=== PATIENT | female | born 1970 | race Caucasian/White ===

== ENCOUNTER → 2021-01-07 | Outpatient (CLI) | payer OTHER ==
[~2021-01-07] MED LIST: AIMOVIG AU140 MG/1 M SQ; ALDACTONE100 MG PO; B 12 PO; BACLOFEN20 MG PO; BYSTOLIC5 MG PO; COLCRYS0.6 MG PO; DILAUDID PUMP EPI; DOCUSATE SODIU100 M1 PO; ELIQUIS 2.5 MG2.5 MG PO; ESTRACE1 MG PO; FLUZONE QU60 MCG/015 IM; HYDROCODON-ACE1 EAC4 PO; HYDROMORPH IV; LEVOTHYROXINE150 MCG PO; MELATONIN10 M2 PO; MELATONIN5 MG PO; NORCO PO; NORVASC PO; NORVASC5 MG PO; PLAQUENIL 200200 MG PO; PLAQUENIL200 MG PO; ROBAXIN-750750 MG PO; TOPAMAX50 MG PO; ULORIC 40 MG TA40 MG GT; VIT D3 PO; VITAMIN B-125000 MC2 PO; WELLBUTRIN PO; WELLBUTRIN XL300 M1 PO; ZANTAC 150 MG150 MG PO; ZOFRAN 8 MG TAB8 MG GT; [UNRECOGNIZED DRUG - OTHER]
== END ==
LOC: MAMO 08:30
DX: Z12.31 Encounter for screening mammogram for malignant neoplasm of breast (principal); N63.20 Unspecified lump in the left breast, unspecified quadrant
CPT/HCPCS: 77063; 77067

== ENCOUNTER → 2021-01-22 | Day surgery (SDC) | payer OTHER | END | disposition home or self-care (01) | LOC: OR 07:17 | DX: K22.4 Dyskinesia of esophagus (principal); K29.61 Other gastritis with bleeding; I10 Essential (primary) hypertension; Z82.49 Family history of ischemic heart disease and other diseases of the circulatory system; Z88.5 Allergy status to narcotic agent; Z88.1 Allergy status to other antibiotic agents | CPT/HCPCS: J2704; J7040 ==

== ENCOUNTER → 2021-02-06 | Outpatient (CLI) | payer OTHER | LOC: MAMO 09:49 → US 10:30 → MAMO 10:30 | DX: R92.8 Other abnormal and inconclusive findings on diagnostic imaging of breast (principal) | CPT/HCPCS: 76641-LT; 77065; G0279 ==

== ENCOUNTER → 2021-02-27 | Outpatient (CLI) | payer OTHER | LOC: RAD 09:00 | DX: R13.10 Dysphagia, unspecified (principal); K21.9 Gastro-esophageal reflux disease without esophagitis | CPT/HCPCS: 74220 ==

== ENCOUNTER → 2021-03-10 | Outpatient (CLI) | payer OTHER, SELFPAY ==
[~2021-03-10] MED LIST changes: +COLCHICINE0.6 M1 PO; +HYDROCHLOROTHIA25 MG PO; +ONDANSETRON ODT8 MG PO; +PROTONIX40 MG PO
== END ==
LOC: CT 03-06 08:30
DX: R63.4 Abnormal weight loss (principal); K44.9 Diaphragmatic hernia without obstruction or gangrene; R93.5 Abnormal findings on diagnostic imaging of other abdominal regions, including retroperitoneum; G31.9 Degenerative disease of nervous system, unspecified; Z98.1 Arthrodesis status; Z96.82 Presence of neurostimulator
CPT/HCPCS: 70470; 71270; Q9967

== ENCOUNTER → 2021-03-27 | Outpatient (CLI) | payer OTHER, SELFPAY | LOC: NM 07:45 | DX: R63.4 Abnormal weight loss (principal) | CPT/HCPCS: 78306; A9503 ==

== ENCOUNTER → 2021-04-22 | Day surgery (SDC) | payer OTHER, SELFPAY | END | disposition home or self-care (01) | LOC: OR 06:24 | DX: K22.2 Esophageal obstruction (principal); K22.4 Dyskinesia of esophagus; K21.00 Gastro-esophageal reflux disease with esophagitis, without bleeding; K64.8 Other hemorrhoids; K57.31 Diverticulosis of large intestine without perforation or abscess with bleeding; Z88.5 Allergy status to narcotic agent; I10 Essential (primary) hypertension; R93.3 Abnormal findings on diagnostic imaging of other parts of digestive tract; F11.90 Opioid use, unspecified, uncomplicated; Z20.822 Contact with and (suspected) exposure to COVID-19; G89.29 Other chronic pain; M54.9 Dorsalgia, unspecified; E03.9 Hypothyroidism, unspecified; Z88.1 Allergy status to other antibiotic agents | CPT/HCPCS: J2704; J7040 ==

== ENCOUNTER → 2021-06-16 | Outpatient (CLI) | payer OTHER | LOC: NM 12:26 | DX: R06.02 Shortness of breath (principal); R00.2 Palpitations; R60.0 Localized edema; I11.0 Hypertensive heart disease with heart failure; I50.9 Heart failure, unspecified; E78.49 Other hyperlipidemia; R07.9 Chest pain, unspecified; I48.0 Paroxysmal atrial fibrillation; I25.5 Ischemic cardiomyopathy | CPT/HCPCS: 78452; 93017; A9502; J2785 ==

== ENCOUNTER → 2021-09-12 | Outpatient (CLI) | payer OTHER | LOC: EROP 13:08 | DX: U07.1 COVID-19 (principal); Z23 Encounter for immunization | CPT/HCPCS: 96365 ==

== ENCOUNTER → 2021-10-15 | Outpatient (CLI) | payer OTHER | LOC: KOH-I 10:46 | DX: M25.561 Pain in right knee (principal); M25.562 Pain in left knee; W18.30XA Fall on same level, unspecified, initial encounter; M17.11 Unilateral primary osteoarthritis, right knee; M25.461 Effusion, right knee; Z96.652 Presence of left artificial knee joint | CPT/HCPCS: 73562 ==

== ENCOUNTER 2021-12-17 16:53 | Inpatient (IN) | payer OTHER ==
[~2021-12-17] VITALS: Ht 170.2 cm; Wt 55.8 kg
[~2021-12-17 16:53] MED LIST changes: -ONDANSETRON ODT8 MG PO
[2021-12-17 19:49] LABS: HEMOGLOBIN 12.8 gm/dl (12.3-15.3); RED BLOOD COUNT 4.11 M/UL (4.00-5.10)
[2021-12-17] MEDS ORDERED: CELLCEPT500 MG PO (22:52)
[2021-12-17] MEDS ORDERED: MUCINEX600 MG PO (22:54)
[2021-12-18] MEDS ORDERED: ONDANSETRON HCL8 MG PO (07:52)
[2021-12-18] MEDS ORDERED: WELLBUTRIN XL150 MG PO (08:18)
[2021-12-18] MEDS ORDERED: WELLBUTRIN XL300 MG PO (08:19)
[2021-12-18] MEDS ORDERED: GABAPENTIN300 MG PO (08:21)
[2021-12-18] MEDS ORDERED: FUROSEMIDE20 MG PO (08:22)
[2021-12-18] MEDS ORDERED: LEVOTHYROXINE150 MCG PO (08:43)
[2021-12-18] MEDS ORDERED: TYLENOL EXTRA500 MG PO (09:32)
[2021-12-18] MEDS ORDERED: PRILOSEC OTC20 MG PO (22:50)
[2021-12-18] MEDS ORDERED: KENALOG OINT 0.15 GM TOP (22:51)
[2021-12-18] MEDS ORDERED: NORVASC5 MG PO (22:52)
[2021-12-18] MEDS ORDERED: PEPCID20 MG PO (22:52)
[2021-12-18] MEDS ORDERED: ULTRAM50 MG PO (22:53)
[2021-12-18] MEDS ORDERED: EFFER-K 20 MEQ20 MEQ PO (22:53)
[2021-12-18] MEDS ORDERED: BACLOFEN20 MG PO (22:53)
[2021-12-18] MEDS ORDERED: CALCIUM-MAGNES1 EAC3 PO (22:55)
[2021-12-18] MEDS ORDERED: VITAMIN D3125 MC1 PO (22:56)
[2021-12-18] MEDS ORDERED: VITAMIN B-121000 MC3 PO (22:56)
[2021-12-18] MEDS ORDERED: COQ-10100 MG PO (22:57)
[2021-12-18] MEDS ORDERED: MAGIC MOUTHWASH PO (22:59)
[2021-12-20 05:00] LABS: HEMOGLOBIN 10.5 gm/dl (12.3-15.3); RED BLOOD COUNT 3.38 M/UL (4.00-5.10)
[2021-12-20] MEDS ORDERED: TOPROL XL25 MG PO (15:03)
[2021-12-20] MEDS ORDERED: FERROUS SULFAT325 MG PO (18:34)
--- NOTE | 2021-12-20 19:19 | NUR ---
1905 IV DISCOTINUED 1909 DISCHARGE INSTRUCTIONS GIVEN. PT AND PTS BOTH VERBAILZE UNDERSTANDING. THEY ARE AWARE THAT IF ANY SYMPTOMS RETURN TO ALERT THEIR PHYSICIAN OR COME TO THE EMERGENCY ROOM IF NEEDED. 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 NO QUESTIONS OR CONCERNS VOICED AT TIME OF DISCHARGE.
[2021-12-25 04:08] LABS: 25-HYDROXY, VITAMIN D 74 ng/mL (.); 25-HYDROXY, VITAMIN D-2 11 ng/mL (.); 25-HYDROXY, VITAMIN D-3 63 ng/mL (.)
== END 2021-12-20 19:23 | disposition home or self-care (01) | DRG 640 ==
LOC: ER1 16:53 → CCU 20:43 → CDU 20:43 → CCU 22:42
PROVIDERS: Emergency Medicine; Internal Medicine; Internal Medicine Nephrology; ADMIT Internal Medicine
DX: E87.1 Hypo-osmolality and hyponatremia (principal); E43 Unspecified severe protein-calorie malnutrition; N17.9 Acute kidney failure, unspecified; Z20.822 Contact with and (suspected) exposure to COVID-19; I13.0 Hypertensive heart and chronic kidney disease with heart failure and stage 1 through stage 4 chronic kidney disease, or unspecified chronic kidney disease; I50.32 Chronic diastolic (congestive) heart failure; F11.20 Opioid dependence, uncomplicated; Z68.1 Body mass index [BMI] 19.9 or less, adult; N18.30 Chronic kidney disease, stage 3 unspecified; M32.9 Systemic lupus erythematosus, unspecified; E86.1 Hypovolemia; G40.909 Epilepsy, unspecified, not intractable, without status epilepticus; E03.9 Hypothyroidism, unspecified; E86.0 Dehydration; E87.6 Hypokalemia; T50.2X5A Adverse effect of carbonic-anhydrase inhibitors, benzothiadiazides and other diuretics, initial encounter; F32.A Depression, unspecified; G43.809 Other migraine, not intractable, without status migrainosus; K21.9 Gastro-esophageal reflux disease without esophagitis; H53.9 Unspecified visual disturbance; G89.29 Other chronic pain; E83.51 Hypocalcemia; F45.8 Other somatoform disorders; Z98.890 Other specified postprocedural states; Z97.8 Presence of other specified devices; Z98.1 Arthrodesis status; Z82.49 Family history of ischemic heart disease and other diseases of the circulatory system
CPT/HCPCS: 36415; 70450; 71045; 80048; 80053; 82140; 82306; 82436; 82533; 82550; 82553; 82570; 82607; 82728; 83540; 83550; 83735; 83930; 83935; 84100; 84133; 84156; 84300; 84439; 84443; 84484; 85025; 85652; 86140; 93005; 99285; J1650; J1756; J3480; J7030; J7040; J7517; U0002

== ENCOUNTER 2021-12-30 11:05 | Observation (INO) | payer OTHER ==
[~2021-12-30] VITALS: Ht 170.2 cm; Wt 53.5 kg
[~2021-12-30 11:05] MED LIST changes: +CALCIUM-MAGNES1 EAC3 PO; +CELLCEPT500 MG PO; +COQ-10100 MG PO; +EFFER-K 20 MEQ20 MEQ PO; +FERROUS SULFAT325 MG PO; +FUROSEMIDE20 MG PO; +GABAPENTIN300 MG PO; +KENALOG OINT 0.15 GM TOP; +MAGIC MOUTHWASH PO; +MUCINEX600 MG PO; +ONDANSETRON HCL8 MG PO; +PEPCID20 MG PO; +PRILOSEC OTC20 MG PO; +TOPROL XL25 MG PO; +TYLENOL EXTRA500 MG PO; +ULTRAM50 MG PO; +VITAMIN B-121000 MC3 PO; +VITAMIN D3125 MC1 PO; +WELLBUTRIN XL150 MG PO; +WELLBUTRIN XL300 MG PO
[2021-12-30 12:14] LABS: HEMOGLOBIN 11.3 gm/dl (12.3-15.3); RED BLOOD COUNT 3.65 M/UL (4.00-5.10); WHITE BLOOD COUNT 6.1 K/UL (4.5-11.0)
[2021-12-30] MEDS ORDERED: EFFER-K 20 MEQ20 MEQ PO (15:56)
[2021-12-30] MEDS ORDERED: VITAMIN D3125 MCG PO (15:57)
[2021-12-31 03:17] LABS: HEMOGLOBIN 10.5 gm/dl (12.3-15.3); RED BLOOD COUNT 3.43 M/UL (4.00-5.10)
[2021-12-31 03:23] LABS: WHITE BLOOD COUNT 3.8 K/UL (4.5-11.0)
[2022-01-01] MEDS ORDERED: BYSTOLIC5 MG PO (13:08)
== END 2022-01-01 14:44 | disposition home or self-care (01) ==
LOC: ER1 11:05 → M/S 15:07 → CDU 15:07 → M/S 19:15
PROVIDERS: Internal Medicine Nephrology; Physician Assistant; Physician Assistant Medical; ADMIT Internal Medicine
DX: E87.1 Hypo-osmolality and hyponatremia (principal); E86.0 Dehydration; E26.9 Hyperaldosteronism, unspecified; I13.0 Hypertensive heart and chronic kidney disease with heart failure and stage 1 through stage 4 chronic kidney disease, or unspecified chronic kidney disease; I50.32 Chronic diastolic (congestive) heart failure; N18.31 Chronic kidney disease, stage 3a; D63.1 Anemia in chronic kidney disease; M32.9 Systemic lupus erythematosus, unspecified; E03.9 Hypothyroidism, unspecified; K21.9 Gastro-esophageal reflux disease without esophagitis; R00.0 Tachycardia, unspecified; G89.4 Chronic pain syndrome; Z20.822 Contact with and (suspected) exposure to COVID-19; G43.909 Migraine, unspecified, not intractable, without status migrainosus; M10.9 Gout, unspecified; F32.A Depression, unspecified; T40.601A Poisoning by unspecified narcotics, accidental (unintentional), initial encounter; B37.0 Candidal stomatitis; Z79.899 Other long term (current) drug therapy; Z88.5 Allergy status to narcotic agent; Z88.8 Allergy status to other drugs, medicaments and biological substances
CPT/HCPCS: ECHO; 36415; 71045; 80048; 80053; 81001; 82436; 82550; 82553; 82728; 83540; 83550; 83605; 83735; 83930; 83935; 84133; 84295; 84300; 84439; 84443; 84484; 84550; 85025; 87040; 93005; 93306; 99285; G0378; J2310; J7030; J7517; U0002